=== PATIENT | male | born 1955 | race African-American/Black ===

== ENCOUNTER 2017-02-09 12:35 | Inpatient (IN) | payer MEDICARE, OTHER ==
[~2017-02-09] VITALS: Ht 188 cm; Wt 95.3 kg
[~2017-02-09 12:35] MED LIST: ASPIRIN81 MG ORAL; ATIVAN0.5 MG ORAL; AZITHROMYCIN250 MG ORAL; HYDROCHLOROTH12.5 M2 ORAL; ISENTRESS400 MG ORAL; NORVIR100 MG ORAL; OMEPRAZOLE20 M2 ORAL; PHENERGAN/CODE120 ML ORAL; PREZISTA400 MG ORAL; TRUVADA 200 MG1 EAC1 ORAL; UNOBMED; ZITHROMAX250 MG ORAL
[2017-02-09 12:57] VITALS: BP 132/89
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
[2017-02-09 13:40] LABS: BASOPHILS % (AUTO) 1.7 % (0.0-2.0); EOSINOPHILS % (AUTO) 1.9 % (0.0-3.0); LYMPHOCYTES % (AUTO) 53.9 % (20.0-45.0); MEAN CORPUSCULAR HEMOGLOBIN 33.4 PG (27.0-31.0); MEAN CORPUSCULAR HGB CONC 33.1 G/DL (32.0-36.0); MEAN CORPUSCULAR VOLUME 101 FL (80-99); MEAN PLATELET VOLUME 8.4 FL (6.5-10.1); MONOCYTES % (AUTO) 6.5 % (1.0-10.0); PLATELET COUNT 150 K/UL (150-450); RED BLOOD COUNT 4.63 M/UL (4.70-6.10); RED CELL DISTRIBUTION WIDTH 12.4 % (11.6-14.8); WHITE BLOOD COUNT 6.7 K/UL (4.8-10.8)
[2017-02-09 13:56] LABS: ALANINE AMINOTRANSFERASE 33 U/L (3-41); ALBUMIN/GLOBULIN RATIO 1.6 (1.0-2.7); ANION GAP 14 (5-15); ASPARTATE AMINO TRANSFERASE 26 U/L (5-40); CALCIUM 9.5 mg/dL (8.6-10.2); CARBON DIOXIDE 24 mEQ/L (20-30); CHLORIDE 102 mEQ/L (98-107); GLOMERULAR FILTRATION RATE > 60 mL/min (>60); HEMOLYSIS 4; POTASSIUM 3.8 mEQ/L (3.4-4.9); SODIUM 140 mEQ/L (135-145); TOTAL PROTEIN 7.6 g/dL (6.6-8.7); TROPONIN I < 0.30 ng/mL (<=0.30)
[2017-02-09 14:06] LABS: CKMB 1.9 ng/mL (< 6.7)
[2017-02-09 15:20] VITALS: BP 146/84
[2017-02-09] MEDS ORDERED: Zolpidem 5mg tab ORAL PRN (16:45)
[2017-02-09] MEDS: Ritonavir 100mg tab ORAL SCH (18:59)
[2017-02-09 20:00] VITALS: BP 118/67
[2017-02-09] MEDS: Isentress 400mg tab ORAL SCH (20:50)
[2017-02-09] MEDS: Heparin 5000 units/ml inj SUBQ SCH (20:53)
[2017-02-10] VITALS: BP 105/57
--- NOTE | 2017-02-10 02:15 | Consultation ---
DATE OF CONSULTATION: 02/09/2017 CARDIOLOGY CONSULT CONSULTING PHYSICIAN: Tavares Trevino M.D. REQUESTING PHYSICIAN: Mckay Sinha M.D. REASON FOR CONSULTATION: Chest pain. HISTORY OF PRESENT ILLNESS: This is a 61-year-old male with a history of hypertension and hyperlipidemia, who is on protease inhibitors for HIV/AIDS. He notes several days of recurring chest pressure. The episodes were not necessarily exertional and unusual. Last evening, he had sexual activity and noted a severe episode thereafter prompting him to come to the emergency room for further evaluation early this morning. The patient did take a Cialis tablet two days ago, but not since. He does not use nitroglycerin. PAST MEDICAL HISTORY: Hypertension, hyperlipidemia, and HIV/AIDS. MEDICATIONS: Reviewed and reconciled. ALLERGIES: Sulfa. SOCIAL HISTORY: No smoking, alcohol, or substance abuse. REVIEW OF SYSTEMS: No fevers or chills. No cough or chest congestion. No history of blood clotting. No history of diabetes or thyroid disorder. He is not on any antihypertensive or anti-lipid drugs presently due to improve parameters. There is no history of seizure or stroke. There is no history of cardiac arrhythmias, endocarditis, or rheumatic heart disease. There is no history of kidney disorder. PHYSICAL EXAMINATION: GENERAL: Appears well. No distress. VITAL SIGNS: Blood pressure 132/89, pulse 73, respirations 20, and afebrile. HEENT: Conjunctivae are pink. Oropharynx clear. NECK: Supple. Jugular venous pressure normal. No bruits. LUNGS: Clear. CARDIAC: Regular rhythm and rate. Normal S1 and S2 with no murmur, rub, or gallop. ABDOMEN: Soft and nontender. EXTREMITIES: Without edema. LABORATORY AND DIAGNOSTIC DATA: EKG revealed sinus rhythm with no abnormalities. Troponin negative. Chemistry panel within normal limits. Chest x-ray is not available to review. IMPRESSION: 1. Acute coronary syndrome. 2. History of hypertension. 3. History of hyperlipidemia. 4. Human immunodeficiency virus/acquired immune deficiency syndrome. PLAN: 1. Serial troponins. 2. Antiplatelet therapy with aspirin. 3. Cardiac monitoring. 4. Nasal oxygen. 5. Check lipid parameters. 6. P.r.n. antihypertensive. 7. No nitrates in view of relatively recent use of Cialis. 8. If no further signs of ischemia, we will obtain exercise stress test for assessment of coronary flow reserve. Tavares Trevino M.D. DR: DEVI JOB#: [id number] CC:
[2017-02-10 04:00] VITALS: BP 110/67
[2017-02-10 07:21] LABS: TROPONIN I < 0.30 ng/mL (<=0.30)
[2017-02-10 07:27] LABS: ALANINE AMINOTRANSFERASE 29 U/L (3-41); ALBUMIN/GLOBULIN RATIO 1.6 (1.0-2.7); ANION GAP 9 (5-15); ASPARTATE AMINO TRANSFERASE 24 U/L (5-40); CALCIUM 9.3 mg/dL (8.6-10.2); CARBON DIOXIDE 27 mEQ/L (20-30); CHLORIDE 105 mEQ/L (98-107); CHOLESTEROL 176 mg/dL (< 200); CHOLESTEROL/HDL RATIO 3.5 (3.3-4.4); GLOMERULAR FILTRATION RATE > 60 mL/min (>60); HEMOLYSIS 5; LDL CHOLESTEROL (CALC.) 108 mg/dL (60-99); POTASSIUM 4.1 mEQ/L (3.4-4.9); SODIUM 141 mEQ/L (135-145); TOTAL PROTEIN 6.6 g/dL (6.6-8.7)
[2017-02-10 08:00] VITALS: BP 118/72
[2017-02-10] MEDS: Ritonavir 100mg tab ORAL SCH ×2 (08:43→18:23)
[2017-02-10] MEDS: Isentress 400mg tab ORAL SCH (08:46)
[2017-02-10] MEDS: Heparin 5000 units/ml inj SUBQ SCH (08:50)
[2017-02-10 12:00] VITALS: BP 120/68
--- NOTE | 2017-02-10 12:12 | Diagnostic Imaging Report ---
Indication: Dyspnea Comparison: 11/17 15 A single view chest radiograph was obtained. Findings: There is mild platelike atelectasis at both lung bases. Lungs are clear. Heart size is normal. Bones are osteopenic. Impression: No acute disease
--- NOTE | 2017-02-10 14:22 | Cardiology Report ---
APPROVED REPORT EXAM: Two-dimensional and M-mode echocardiogram with Doppler and color Doppler. INDICATION Chest Pain M-Mode DIMENSIONS IVSd0.8 (0.7-1.1cm)Left Atrium (MM)3.4 (1.6-4.0cm) LVDd3.8 (3.5-5.6cm)Aortic Root3.0 (2.0-3.7cm) PWd0.8 (0.7-1.1cm)Aortic Cusp Exc.1.7 (1.5-2.0cm) LVDs2.0 (2.5-4.0cm) PWs0.7 cm Normal left ventricular chamber size, systolic function and wall motion. Left ventricular ejection fraction estimated to be 55-60%. No evidence of left ventricular hypertrophy. No evidence of pericardial fat or effusion. All other cardiac chamber sizes are within normal limits. Focal aortic valve sclerosis with adequate cusp excursion Thickened mitral valve leaflets with normal excursion. Mitral annulus and aortic root calcification. Pulmonic valve not well visualized. Normal tricuspid valve structure. IVC is normal in size with physiological collapse. A color flow and spectral Doppler study was performed and revealed: No aortic regurgitation. No mitral regurgitation. Left ventricular diastolic dysfunction grade 1. No tricuspid regurgitation.
[2017-02-10 16:00] VITALS: BP 127/74
--- NOTE | 2017-02-10 16:11 | Diagnostic Imaging Report ---
Indication: chest pain Technique: The study was conducted under the supervision of a stock supervisor. Exercise on a treadmill utilizing (Wellington protocol) followed by intravenous administration of 31.2 mCi of technetium 99m Myoview was performed. Three plane SPECT imaging of the heart was then performed. A resting study was performed as part of the one-day protocol with 10.7 mCi of technetium 99m myoview injected intravenously at that time. Three plane SPECT imaging of the heart was obtained. Comparison: None Clinical data: Resting heart rate: 74. Peak exercise heart rate: 136 (85% maximum predicted heart rate). Target was achieved. Resting BP: 118/72. Peak exercise BP: 162/80. Duration of exercise: 8 minutes and 22 seconds. Reason for stopping: stopped because exertional level achieved. EKG: Normal sinus rhythm. 1. Clinical response: Non ischemic 2. Electrocardiographic response: Non ischemic Findings: The myocardial perfusion scan demonstrates LVEF of 69%. No fixed or reversible perfusion defects are identified. Impression: Negative myocardial perfusion scan
--- NOTE | 2017-02-10 17:54 | History & Physical ---
History and Physical History & Physicial HISTORY OF PRESENT ILLNESS: 61-year-old male with a history of hypertension and hyperlipidemia, presents with several days of recurring chest pressure without radiation. The episodes were not necessarily exertional and unusual. Patient presented after sexual activity and had worsening chest pressure and presented to the ER for admission. He denies CAD history PAST MEDICAL HISTORY: Hypertension, hyperlipidemia, and HIV/AIDS. MEDICATIONS: Reviewed and reconciled. ALLERGIES: Sulfa. SOCIAL HISTORY: No smoking, alcohol, or substance abuse. independent REVIEW OF SYSTEMS: all 10 points reviewed PHYSICAL EXAMINATION: GENERAL: Appears well. No distress. NAD VITAL SIGNS: Blood pressure 132/89, pulse 73, respirations 20, and afebrile. HEENT: EOMI PERRL NECK: Supple. Jugular venous pressure normal. No bruits. LUNGS: Clear.without rhonchi or wheeze CARDIAC: Regular rhythm and rate. Normal S1 and S2 with no murmur, rub, or gallop. ABDOMEN: Soft and nontender. no distention EXTREMITIES: no CCE; nonfocal LABORATORY AND DIAGNOSTIC DATA: EKG revealed sinus rhythm with no abnormalities. Labs Test 02/09/17 13:00 02/10/17 05:25 White Blood Count 6.7 K/UL (4.8-10.8) Red Blood Count 4.63 M/UL (4.70-6.10) Hemoglobin 15.5 G/DL (14.2-18.0) Hematocrit 46.6 % (42.0-52.0) Mean Corpuscular Volume 101 FL (80-99) Mean Corpuscular Hemoglobin 33.4 PG (27.0-31.0) Mean Corpuscular Hemoglobin Concent 33.1 G/DL (32.0-36.0) Red Cell Distribution Width 12.4 % (11.6-14.8) Platelet Count 150 K/UL (150-450) Mean Platelet Volume 8.4 FL (6.5-10.1) Neutrophils (%) (Auto) 36.0 % (45.0-75.0) Lymphocytes (%) (Auto) 53.9 % (20.0-45.0) Monocytes (%) (Auto) 6.5 % (1.0-10.0) Eosinophils (%) (Auto) 1.9 % (0.0-3.0) Basophils (%) (Auto) 1.7 % (0.0-2.0) Sodium Level 140 mEQ/L (135-145) 141 mEQ/L (135-145) Potassium Level 3.8 mEQ/L (3.4-4.9) 4.1 mEQ/L (3.4-4.9) Chloride Level 102 mEQ/L (98-107) 105 mEQ/L (98-107) Carbon Dioxide Level 24 mEQ/L (20-30) 27 mEQ/L (20-30) Anion Gap 14 (5-15) 9 (5-15) Blood Urea Nitrogen 16 mg/dL (7-23) 16 mg/dL (7-23) Creatinine 1.0 mg/dL (0.7-1.2) 1.0 mg/dL (0.7-1.2) Estimat Glomerular Filtration Rate > 60 mL/min (>60) > 60 mL/min (>60) Glucose Level 105 mg/dL (74-106) 97 mg/dL (74-106) Calcium Level 9.5 mg/dL (8.6-10.2) 9.3 mg/dL (8.6-10.2) Total Bilirubin 0.5 mg/dL (0.0-1.2) 0.4 mg/dL (0.0-1.2) Aspartate Amino Transf (AST/SGOT) 26 U/L (5-40) 24 U/L (5-40) Alanine Aminotransferase (ALT/SGPT) 33 U/L (3-41) 29 U/L (3-41) Alkaline Phosphatase 63 U/L (40-129) 56 U/L (40-129) Total Creatine Kinase 156 U/L (38-174) Creatine Kinase MB 1.9 ng/mL (< 6.7) Creatine Kinase MB Relative Index 1.2 Troponin I < 0.30 ng/mL (<=0.30) < 0.30 ng/mL (<=0.30) Total Protein 7.6 g/dL (6.6-8.7) 6.6 g/dL (6.6-8.7) Albumin 4.7 g/dL (3.5-5.2) 4.1 g/dL (3.5-5.2) Globulin 2.9 g/dL 2.5 g/dL Albumin/Globulin Ratio 1.6 (1.0-2.7) 1.6 (1.0-2.7) Triglycerides Level 92 mg/dL (< 150) Cholesterol Level 176 mg/dL (< 200) LDL Cholesterol 108 mg/dL (60-99) HDL Cholesterol 50 mg/dL (> 60) Cholesterol/HDL Ratio 3.5 (3.3-4.4) Thyroid Stimulating Hormone (TSH) 0.730 uIU/mL (0.300-4.500) IMPRESSION: 1. Possible Acute coronary syndrome. 2. History of hypertension. 3. History of hyperlipidemia. 4. HIV PLAN: 1. Serial troponins. 2. aspirin. 3. Cardiac monitoring. 4. Nasal oxygen. 5. Check lipid parameters. 6. Cardiology appreciated 7. Stress test and dc if stable JENNIFFER GIBSON Feb 10, 2017 17:54
--- NOTE | 2017-02-11 03:30 | Progress Note ---
DATE: 02/10/2017 CARDIOLOGY PROGRESS NOTE: SUBJECTIVE: The patient is without chest pain. No shortness of breath. Troponin level negative. Monitored rhythm sinus. OBJECTIVE: VITAL SIGNS: Blood pressure is 110/67 and heart rate 60 with respiratory rate 16. No fevers. NECK: Supple. LUNGS: Clear. CARDIAC: Regular. Normal S1 and S2. ABDOMEN: Soft. EXTREMITIES: No edema. DIAGNOSTIC DATA: 1. Echocardiogram revealed normal ejection fraction with mild concentric hypertrophy. 2. Exercise stress test, preliminary negative for exercise-induced ischemia. 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 3. History of hypertension, controlled off medications. 4. History of hyperlipidemia. 5. Human-immunodeficiency virus and acquired immune-deficiency syndrome, on antiviral regimen. PLAN: 1. Outpatient followup. 2. LDL goal less than 100, continued anti-platelet therapy. 3. Monitor blood pressure. 4. Initiate antihypertensives, if blood pressure elevation reoccurs. Tavares Trevino M.D. DR: Sofia JOB#: [id number] CC:
--- NOTE | 2017-02-11 10:39 | Discharge Summary ---
Discharge Summary Hospital Course Date of Admission Feb 09, 2017 at 15:55 Date of Discharge Feb 10, 2017 at 19:01 Admitting Diagnosis CHEST PAIN HPI Prabhjot Phoenix is a 61 year old male who was admitted on Feb 09, 2017 at 15:55 for Chest Pain Hospital Course dc summary #[id number] Discharge Medications Continued Medications: Aspirin* (Aspirin*) 81 Mg Tab.chew 81 MG ORAL DAILY, TAB Azithromycin* (Zithromax*) 250 Mg Tablet 250 MG ORAL DAILY, #6 TAB Take two tablets by mouth today, then take one tablet by mouth daily for four days Darunavir Ethanolate (Prezista*) 400 Mg Tablet Unknown Dose ORAL DAILY, TAB Emtricitabine/Tenofovir 200-300MG* (Truvada 200-300MG*) 1 Each Tablet Unknown Dose ORAL DAILY, TAB Hydrochlorothiazide* (Hydrochlorothiazide*) 12.5 Mg Capsule 12.5 MG ORAL DAILY, CAP Lorazepam* (Ativan*) 0.5 Mg Tablet 0.5 MG ORAL THREE TIMES A DAY, #14 TAB Omeprazole (Omeprazole) 20 Mg Capsule.dr 20 MG ORAL DAILY, #20 CAP Raltegravir (Isentress) 400 Mg Tab 400 MG ORAL EVERY 12 HOURS, TAB Ritonavir* (Norvir*) 100 Mg Capsule 100 MG ORAL TWICE A DAY, #60 CAP Discharge Condition Upon Discharge: stable Discharge Disposition Patient was discharged to Home () Discharge Diagnoses: Discharge Instructions Discharge Instructions Special Instructions I have been assigned to complete a D/C Summary on this account. I was not involved in the patient management Elizabet Foreman NP ([facility]) Feb 11, 2017 10:39
--- NOTE | 2017-02-12 04:21 | Discharge Summary 2 SIG ---
DATE OF ADMISSION: 02/09/2017 DATE OF DISCHARGE: 02/10/2017 REASON FOR ADMISSION: 61-year-old male with history of hypertension, hyperlipidemia, and human immunodeficiency status (last CD4 count 700), presented with several days of recurrent chest pain without radiation. No exertional shortness of breath. Reported dizziness. Chest pressure started after having sexual activity. He denied any prior coronary artery disease history. First troponin was negative. EKG revealed normal sinus rhythm. No acute ischemic changes. Chest x-ray revealed no acute cardiopulmonary pathology. Vital signs were stable. The patient was admitted for further management. ADMITTING DIAGNOSES: 1. Chest pain 2. Possible acute coronary syndrome. 3. Human immunodeficiency virus status. 4. Hypertension. 5. Hyperlipidemia. HOSPITAL STAY: The patient was admitted to telemetry floor. Cardiology consult was requested. Serial troponin were negative. EKG revealed no acute ischemic changes. Cardiology closely followed. The patient was ruled out for acute myocardial infarction. Echocardiogram revealed preserved ejection fraction of 55% to 60%. Lipid panel revealed elevated LDL of 108. TSH was within normal limits. Goal for LDL below 100. Antiplatelet therapy continued. Stress test was nonischemic. Per repair manager, the patient had anginal syndrome and microvascular coronary disease with low likelihood for flow-limiting coronary artery disease. The patient needs to follow up with repair manager as outpatient. The patient was stable for discharge. Due to the rapid and unexpected improvement in the patient's condition, the patient was discharged in one day. 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 3. Hypertension. 4. Hyperlipidemia. 5. Human immunodeficiency virus status. DISCHARGE MEDICATIONS: See medication reconciliation list. DISCHARGE INSTRUCTIONS: The patient was discharged home. Follow up with primary medical doctor and repair manager as outpatient. Mckay Sinha M.D. I have been assigned to dictate discharge summary on this account and I was not involved in the patient's management. Eliz[facility]et [facility]) N.PNam DR: JESSE JOB#: [id number] CC: SOHA
--- NOTE | 2017-02-13 21:23 | Cardiology Report ---
APPROVED REPORT EKG Measurement Heart [id number] Normal sinus rhythm Normal ECG
== END 2017-02-10 19:01 | disposition home or self-care (01) | DRG 302 ==
LOC: EMR 13:27 → EDBEDREQ 14:53 → UNDOADMIN 15:55 → 2E 15:55 → UNDODISIN 02-10 19:01
DX: I25.119 Atherosclerotic heart disease of native coronary artery with unspecified angina pectoris (principal); B20 Human immunodeficiency virus [HIV] disease; I10 Essential (primary) hypertension; E78.5 Hyperlipidemia, unspecified
CPT/HCPCS: 36415; 71010; 78452; 80053; 80061; 82550; 82553; 84443; 84484; 85025; 93005; 93017; 93306; 99284

== ENCOUNTER 2018-01-19 21:51 | Emergency (ER) | payer MEDICARE, OTHER ==
[~2018-01-19] VITALS: Ht 188 cm; Wt 98.9 kg
[2018-01-19] MEDS ORDERED: DESCOVY PO (22:03)
[2018-01-19 22:07] VITALS: BP 128/83
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
[2018-01-19 22:55] VITALS: BP 128/83
--- NOTE | 2018-01-20 09:12 | Diagnostic Imaging Report ---
Indication: Altered mental status Technique: Continuous helical CT scanning of the head was performed utilizing automated exposure control without intravenous contrast material. Axial and coronal reconstructions were obtained. Comparison: None CT dose: Total DLP 1376.09 mGycm; CTDI vol 70.38 mGy Findings: There is no acute intracranial hemorrhage, mass effect or cortical edema. The ventricles, cisterns and sulci are within normal limits for age. There is very mild periventricular hypoattenuation, nonspecific finding most commonly related to sequela of chronic microvascular ischemia. There are atherosclerotic vascular calcifications. Visualized mastoid air cells and paranasal sinuses are unremarkable. No focal lesions of the bony calvarium or soft tissues of the scalp are seen. IMPRESSION: No evidence of acute intracranial hemorrhage, mass effect or cortical edema. MRI may be obtained for more sensitive evaluation as clinically indicated. The CT scanner at [facility] is accredited by the [employer] and the scans are performed using protocols designed to limit radiation exposure to as low as reasonably achievable to attain images of sufficient resolution adequate for diagnostic evaluation.
== END 2018-01-19 22:56 | disposition home or self-care (01) ==
LOC: EMR 22:30
DX: R51 Headache (principal); Z88.2 Allergy status to sulfonamides
CPT/HCPCS: 70450; 99285

== ENCOUNTER 2018-11-29 18:18 | Emergency (ER) | payer MEDICARE, OTHER ==
[~2018-11-29] VITALS: Ht 188 cm; Wt 88.5 kg
[~2018-11-29 18:18] MED LIST changes: +DESCOVY PO
--- NOTE | 2018-11-29 18:31 | NUR ---
ED Nurse Note: pt walked into ED c/o weakness and dizziness for 1 day and reports he started having twitching in his eyes. pt denies cp/sob/n/v at this time. pt AA&ox4, gcs=15, skin warm and dry, reps even and unlabored on RA, -n/v/d, ambulates w/ steady gait, ERMD at the bedside, all safety precautions in place, will cont monitor. vss. nsr on campus monitor.
[2018-11-29 18:33] VITALS: BP 134/74
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
[2018-11-29 18:58] LABS: BASOPHILS % (AUTO) 1.8 % (0.0-2.0); HEMATOCRIT 38.2 % (42.0-52.0); HEMOGLOBIN 13.5 G/DL (14.2-18.0); LYMPHOCYTES % (AUTO) 52.4 % (20.0-45.0); MEAN CORPUSCULAR VOLUME 95 FL (80-99); MONOCYTES % (AUTO) 12.8 % (1.0-10.0); PLATELET COUNT 123 K/UL (150-450); RED BLOOD COUNT 4.01 M/UL (4.70-6.10); RED CELL DISTRIBUTION WIDTH 12.9 % (11.6-14.8); WHITE BLOOD COUNT 5.8 K/UL (4.8-10.8)
[2018-11-29 19:15] LABS: ANION GAP 9 mmol/L (5-15); BLOOD UREA NITROGEN 14 mg/dL (7-18); CALCIUM 8.8 MG/DL (8.5-10.1); CARBON DIOXIDE 26 MMOL/L (21-32); CHLORIDE 104 MMOL/L (98-107); CREATININE 1.3 MG/DL (0.55-1.30); POTASSIUM 3.5 MMOL/L (3.5-5.1); SODIUM 138 MMOL/L (136-145)
--- NOTE | 2018-11-29 19:20 | NUR ---
ED Nurse Note: pt resting at this time, vss, resp even and unlabored on RA, NSR on cook chief, pt advised to notify staff if needed assist, all safety precautions in place.
[2018-11-29 19:27] LABS: ALANINE AMINOTRANSFERASE 34 U/L (12-78); ALBUMIN 3.7 G/DL (3.4-5.0); ALBUMIN/GLOBULIN RATIO 1.1 (1.0-2.7); ALKALINE PHOSPHATASE 62 U/L (46-116); ASPARTATE AMINO TRANSFERASE 35 U/L (15-37); BILIRUBIN,TOTAL 0.5 MG/DL (0.2-1.0)
--- NOTE | 2018-11-29 20:00 | NUR ---
ED Nurse Note: verified w/ ermd regarding medication kdur.
[2018-11-29 20:10] VITALS: BP 122/60
--- NOTE | 2018-11-29 20:10 | NUR ---
ED Nurse Note: Pt cleared to be d/c per ERMD, pt discharge and aftercare instruction provided, pt education done via discussion and handout, pt advised to follow up with pcp or return to ed if changes in condition, pt vss, ambulatory w/steady gait, iv d/c and id band removed, left w/ all belongings.
== END 2018-11-29 20:10 | disposition home or self-care (01) ==
LOC: EMR 18:29
DX: R20.2 Paresthesia of skin (principal); Z88.2 Allergy status to sulfonamides; I10 Essential (primary) hypertension; B20 Human immunodeficiency virus [HIV] disease
CPT/HCPCS: 36415; 80053; 84443; 84484; 85025; 99283; J8499

== ENCOUNTER 2019-05-19 14:26 | Inpatient (IN) | payer MEDICARE, OTHER ==
[~2019-05-19] VITALS: Ht 185.4 cm; Wt 85.7 kg
[2019-05-19 15:05] VITALS: BP 166/76
--- NOTE | 2019-05-19 15:06 | NUR ---
ED Nurse Note: pt walked in to ED for C/O upper abd pain x 3 days. pt reports feelin of having a knot being tied inside his stomach. pt also has been having nausea and vomitting. VSS
[2019-05-19] MEDS ORDERED: Omnipaque-300 100ml vial INJ PRN (15:15)
[2019-05-19] MEDS ORDERED: Morphine Sulfate 4mg/ml Inj (IV USE ONLY) IVP ONE (15:15)
--- NOTE | 2019-05-19 15:16 | NUR ---
ED Nurse Note: blood sample sent down to lab. unable to provide urine at this time.
[2019-05-19 15:43] LABS: INR 0.9 (0.9-1.1)
[2019-05-19 15:44] LABS: BASOPHILS % (AUTO) 1.5 % (0.0-2.0); HEMATOCRIT 44.7 % (42.0-52.0); HEMOGLOBIN 15.8 G/DL (14.2-18.0); LYMPHOCYTES % (AUTO) 49.7 % (20.0-45.0); MEAN CORPUSCULAR VOLUME 101 FL (80-99); MONOCYTES % (AUTO) 8.9 % (1.0-10.0); NEUTROPHILS % (AUTO) 38.9 % (45.0-75.0); PLATELET COUNT 139 K/UL (150-450); RED BLOOD COUNT 4.43 M/UL (4.70-6.10); RED CELL DISTRIBUTION WIDTH 12.7 % (11.6-14.8); WHITE BLOOD COUNT 7.3 K/UL (4.8-10.8)
[2019-05-19 15:46] LABS: ANION GAP 9 mmol/L (5-15); BLOOD UREA NITROGEN 12 mg/dL (7-18); CALCIUM 9.3 MG/DL (8.5-10.1); CARBON DIOXIDE 28 MMOL/L (21-32); CHLORIDE 100 MMOL/L (98-107); CREATININE 1.1 MG/DL (0.55-1.30); POTASSIUM 3.7 MMOL/L (3.5-5.1); SODIUM 137 MMOL/L (136-145)
[2019-05-19 15:50] LABS: ALANINE AMINOTRANSFERASE 43 U/L (12-78); ALBUMIN 4.2 G/DL (3.4-5.0); ALKALINE PHOSPHATASE 71 U/L (46-116); ASPARTATE AMINO TRANSFERASE 32 U/L (15-37); BILIRUBIN,TOTAL 0.5 MG/DL (0.2-1.0)
--- NOTE | 2019-05-19 16:04 | NUR ---
ED Nurse Note: PT went to Ct
--- NOTE | 2019-05-19 16:20 | NUR ---
ED Nurse Note: vack form CT
[2019-05-19 16:40] LABS: APPEARANCE,URINE CLEAR; BILIRUBIN, URINE NEGATIVE (NEGATIVE); GLUCOSE, URINE (UA) NEGATIVE (NEGATIVE); KETONES,URINE NEGATIVE (NEGATIVE); LEUKOCYTE ESTERASE ,URINE NEGATIVE (NEGATIVE); NITRITE,URINE NEGATIVE (NEGATIVE); PH,URINE 6.5 (4.5-8.0); PROTEIN,URINE NEGATIVE (NEGATIVE); UROBILINOGEN,URINE 4 MG/DL (0.0-1.0)
--- NOTE | 2019-05-19 16:50 | Diagnostic Imaging Report ---
Clinical Indication: Abdominal pain x3 days, nausea and vomiting Technique: No oral contrast utilized, per emergency room physician request IV administration nonionic contrast. Venous phase spiral acquisition obtained through the abdomen and pelvis. Multiplanar reconstructions were generated. Total dose length product 967 mGycm. CTDIvol(s) 16 mGy. Dose reduction achieved using automated exposure control Comparison: none Findings: Lack of enteric contrast limits assessment of the GI tract. The terminal ileum is slightly prominent, demonstrates mild wall thickening. The distal ileum proximal to the terminal ileum is unremarkable in appearance. However, beginning at the level of the mid jejunum, the small bowel is dilated and fluid-filled. The wall is somewhat prominent and enhancing. The transition point appears to be in the left lower quadrant, axial series 2 images 57 through 75, distal to which small bowel is nondilated, still fluid-filled with some mural enhancement. The distal dilated small bowel contains some small bowel feces The appendix is normal. There is no evidence of colonic diverticulosis or diverticulitis. No free or loculated intraperitoneal gas or fluid is evident. The distal esophagus is unremarkable. The stomach is mildly distended with fluid. The duodenum is unremarkable. The liver, gallbladder, bile ducts, pancreas, spleen, adrenals, kidneys are unremarkable. No pelvic mass or adenopathy. No retroperitoneal or mesenteric mass or adenopathy. Some calcifications are seen in the left anterior pelvis, may represent old granulomatous lymph nodes The included lung bases demonstrate some posterior dependent atelectatic changes. The bones are unremarkable except for mild degenerative spondylosis changes. There are coronary artery calcifications Impression: Dilated mid and distal jejunum, with normal caliber ileum distally. Findings are suspicious for small bowel obstruction, point of obstruction at the level of the mid small bowel. However, given findings suggestive of inflammation of the terminal ileum, enteritis/ileitis is also a potential etiology of this finding Nonspecific calcifications within the left pelvis Other incidental findings as noted, including posterior dependent atelectatic changes. Mild degenerative spondylosis changes The CT scanner at [facility] is accredited by the [employer] and the scans are performed using protocols designed to limit radiation exposure to as low as reasonably achievable to attain images of sufficient resolution adequate for diagnostic evaluation.
[2019-05-19 17:10] LABS: COLOR,URINE YELLOW
[2019-05-19] MEDS ORDERED: Hydromorphone 0.5mg/0.5ml inj IVP ONE (17:45)
[2019-05-19] MEDS ORDERED: FAMOTIDINE10 MG ORAL (17:46)
[2019-05-19] MEDS ORDERED: LISINOPRIL5 MG ORAL (17:46)
--- NOTE | 2019-05-19 18:06 | NUR ---
ED Nurse Note: NGT inserted, awaiting for x ray to confirm placement.
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
--- NOTE | 2019-05-19 18:09 | NUR ---
ED Nurse Note: chest x ray at bedside.
[2019-05-19 18:10] VITALS: BP 152/80
--- NOTE | 2019-05-19 18:31 | NUR ---
ED Nurse Note: pt in bed resting with eyes closed. No acute distress is noted.
--- NOTE | 2019-05-19 18:37 | Diagnostic Imaging Report ---
History: PREOP Exam: XR ABDOMEN Comparison: IMPRESSION: Single image. Nasogastric tube tip within the proximal stomach approximately 4.5 cm beyond the expected location of the GE junction
--- NOTE | 2019-05-19 18:45 | NUR ---
ED Nurse Note: pt was brought up to MS [id number] -1 accompanied by marketing technology coordinator in stable condition. Report given to accepting RN. Belonging list signed. IV intact to right AC 18G. NGT inplace to right nare.
--- NOTE | 2019-05-19 19:00 | NUR ---
NURSE NOTES: Received report from Khadra HICKS, pt arrived to the floor at 18:50 with no signs of distress or other issues at this time. VS: temp: 98.3, 151/77, HR: 55, R: 20 O2 sat: 96%. pt presented with NGT on the right nostril FR#16 with low intermittent suction. Iv on the right Ac gauge#18 heplock. per report pt received bolus 1L x1. no skin issues. call light within reach, bed in lowest position, side rales up x2. I will f/u as needed. - Belongings list per ER was not correct. RN added pt's upper dentures and credit cards x4, [employer] $5 x2 =$10. pt stated that wanted to keep her wallet at bedside.
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
[2019-05-19] MEDS ORDERED: Acetaminophen 650 MG SUPP RECTAL PRN (19:15)
[2019-05-19] MEDS ORDERED: Morphine Sulfate 2mg/ml Inj(IV/IM USE ONLY) IVP PRN (19:15)
--- NOTE | 2019-05-19 19:30 | NUR ---
HAND-OFF: Report given to Desiree HICKS. pt in stable condition.
[2019-05-19] MEDS: D5NS 1,000 ML IV SCH (20:06)
[2019-05-19] MEDS: Heparin 5000 units/ml inj SUBQ SCH (20:08)
[2019-05-19 20:19] VITALS: BP 141/74
[2019-05-19] MEDS: LORazepam Inj 2mg/ml 1ml IV PRN (22:57)
--- NOTE | 2019-05-19 23:02 | Diagnostic Imaging Report ---
EXAM: XR Abdomen, 2 Views CLINICAL HISTORY: NGT TECHNIQUE: Frontal view of the abdomen/pelvis with upright view of the abdomen. COMPARISON: 05/19/18, 1807 hour FINDINGS: Gastrointestinal tract: Long segment of small bowel are moderately dilated to 5 cm in maximal diameter, suggest ileus versus obstruction. Bones/joints: Mild degenerative changes. Tubes, lines and devices: Tip and sidehole of enteric tube are in the body of stomach. IMPRESSION: Tip and sidehole of enteric tube are in the body of stomach.
--- NOTE | 2019-05-19 23:24 | NUR ---
NURSE NOTE: Pt NG tube fell out after using the restroom at approx 2250. Dr. Manriquez was contacted. NG tube reinserted with 16 F in the right nares. Addendum: 05/19/19 at 2327 by Desiree Negrete RN NG tube connected to low intermittent wall suction.
--- NOTE | 2019-05-19 23:34 | NUR ---
NURSE NOTE: Pt is A/Ox4 with stable VS. Orders reviewed and physical assessment completed. Pt complains of nausea despite having an NG tube as well as abdominal pain 12/30. PRN meds given accordingly. NG tube is a 16 F in the R nares connected to low intermittent suction. NG tube output is bilious. Call hernandez is within reach, will continue to monitor.
[2019-05-20 04:00] VITALS: BP 130/74
[2019-05-20] MEDS: D5NS 1,000 ML IV SCH ×2 (05:14→16:01)
[2019-05-20 06:59] LABS: INR 0.9 (0.9-1.1)
[2019-05-20 07:02] LABS: BASOPHILS % (AUTO) 0.9 % (0.0-2.0); EOSINOPHILS % (AUTO) 1.2 % (0.0-3.0); HEMATOCRIT 40.9 % (42.0-52.0); HEMOGLOBIN 14.3 G/DL (14.2-18.0); LYMPHOCYTES % (AUTO) 35.4 % (20.0-45.0); MEAN CORPUSCULAR VOLUME 101 FL (80-99); MONOCYTES % (AUTO) 10.9 % (1.0-10.0); NEUTROPHILS % (AUTO) 51.6 % (45.0-75.0); PLATELET COUNT 128 K/UL (150-450); RED BLOOD COUNT 4.04 M/UL (4.70-6.10); RED CELL DISTRIBUTION WIDTH 12.6 % (11.6-14.8)
[2019-05-20 07:07] LABS: ALANINE AMINOTRANSFERASE 41 U/L (12-78); ALBUMIN 3.2 G/DL (3.4-5.0); ALBUMIN/GLOBULIN RATIO 0.9 (1.0-2.7); ALKALINE PHOSPHATASE 58 U/L (46-116); ANION GAP 7 mmol/L (5-15); ASPARTATE AMINO TRANSFERASE 28 U/L (15-37); BILIRUBIN,TOTAL 0.4 MG/DL (0.2-1.0); BLOOD UREA NITROGEN 7 mg/dL (7-18); CALCIUM 7.8 MG/DL (8.5-10.1); CARBON DIOXIDE 27 MMOL/L (21-32); CHLORIDE 106 MMOL/L (98-107); CHOLESTEROL 180 MG/DL (< 200); CREATININE 0.8 MG/DL (0.55-1.30); HDL CHOLESTEROL 48 MG/DL (40-60); POTASSIUM 3.8 MMOL/L (3.5-5.1); SODIUM 140 MMOL/L (136-145); TRIGLYCERIDES 111 MG/DL (30-150)
--- NOTE | 2019-05-20 07:26 | NUR ---
HAND-OFF: Report given to
[2019-05-20 08:00] VITALS: BP 125/71
--- NOTE | 2019-05-20 08:00 | NUR ---
NURSE NOTES: Received report from Desiree HICKS. pt a/a/o x4 laying in bed with no signs of distress or other issues at this time. pt has a NGT on the right nostril with low intermittent suction. per night nurse report, total out put:150ml. call light within reach, bed in lowest position, side rales up x2. I will f/u as needed.
--- NOTE | 2019-05-20 08:48 | Diagnostic Imaging Report ---
EXAM: XR Abdomen, 1 Views CLINICAL HISTORY: F/U TECHNIQUE: Frontal view of the abdomen/pelvis . COMPARISON: Abdomen film 05/19/19 FINDINGS: Lower thorax: Elevated right hemidiaphragm. Gastrointestinal tract: Previously seen dilated small bowel have resolved. Moderate stool and gas in the colon. No bowel obstruction. Bones/joints: Unremarkable. Tubes, lines and devices: NG tube tip in the stomach, good position. IMPRESSION: 1. NG tube tip in the stomach, good position. 2. Previously seen dilated small bowel loops have resolved. Moderate stool and gas in the colon. No bowel obstruction.
[2019-05-20] MEDS: Pantoprazole Inj IV SCH (09:25)
[2019-05-20] MEDS: Heparin 5000 units/ml inj SUBQ SCH ×2 (09:26→20:34)
[2019-05-20 12:00] VITALS: BP 173/103
--- NOTE | 2019-05-20 13:12 | Surgery Progress Note ---
Surgery Progress Note Subjective Symptoms: improved, pain absent, tolerating diet, voiding well, passing flatus , pain decreased Additional Comments much improved passing flatus KUB improved ng tube okay Objective Last 24 Hour Vital Signs Date Time Temp Pulse Resp B/P (MAP) Pulse Ox O2 Delivery O2 Flow Rate FiO2 05/20/19 08:00 98.4 60 16 125/71 (89) 94 05/20/19 04:00 97.3 71 18 130/74 (92) 97 05/19/19 21:32 Room Air 05/19/19 20:19 97.7 54 18 141/74 (96) 95 05/19/19 18:44 98.0 84 20 156/80 97 Room Air 05/19/19 18:10 98.0 90 20 152/80 96 Room Air 05/19/19 15:05 88 22 Room Air 05/19/19 15:05 98.1 88 22 166/76 96 Room Air 05/19/19 14:50 98.1 88 22 166/76 (106) 96 Room Air I&O Intake and Output 05/19/19 05/20/19 19:00 07:00 Intake Total 1000 ml Output Total 0 ml 750 ml Balance 1000 ml -750 ml Intake IV Total 1000 ml Output Urine Total 0 ml 600 ml Gastric Drainage Total 150 ml # Voids 2 Drains: other Cardiovascular: RSR Respiratory: clear Abdomen: soft, flat, non-tender, present bowel sounds, non-distended Extremities: no cyanosis Laboratory Tests Test 05/19/19 15:15 05/19/19 16:23 05/20/19 05:35 White Blood Count 7.3 K/UL (4.8-10.8) 6.0 K/UL (4.8-10.8) Red Blood Count 4.43 M/UL (4.70-6.10) L 4.04 M/UL (4.70-6.10) L Hemoglobin 15.8 G/DL (14.2-18.0) 14.3 G/DL (14.2-18.0) Hematocrit 44.7 % (42.0-52.0) 40.9 % (42.0-52.0) L Mean Corpuscular Volume 101 FL (80-99) H 101 FL (80-99) H Mean Corpuscular Hemoglobin 35.7 PG (27.0-31.0) H 35.4 PG (27.0-31.0) H Mean Corpuscular Hemoglobin Concent 35.4 G/DL (32.0-36.0) 35.0 G/DL (32.0-36.0) Red Cell Distribution Width 12.7 % (11.6-14.8) 12.6 % (11.6-14.8) Platelet Count 139 K/UL (150-450) L 128 K/UL (150-450) L Mean Platelet Volume 6.4 FL (6.5-10.1) L 7.8 FL (6.5-10.1) Neutrophils (%) (Auto) 38.9 % (45.0-75.0) L 51.6 % (45.0-75.0) Lymphocytes (%) (Auto) 49.7 % (20.0-45.0) H 35.4 % (20.0-45.0) Monocytes (%) (Auto) 8.9 % (1.0-10.0) 10.9 % (1.0-10.0) H Eosinophils (%) (Auto) 1.0 % (0.0-3.0) 1.2 % (0.0-3.0) Basophils (%) (Auto) 1.5 % (0.0-2.0) 0.9 % (0.0-2.0) Prothrombin Time 9.7 SEC (9.30-11.50) 10.0 SEC (9.30-11.50) Prothromb Time International Ratio 0.9 (0.9-1.1) 0.9 (0.9-1.1) Activated Partial Thromboplast Time 25 SEC (23-33) 25 SEC (23-33) Sodium Level 137 MMOL/L (136-145) 140 MMOL/L (136-145) Potassium Level 3.7 MMOL/L (3.5-5.1) 3.8 MMOL/L (3.5-5.1) Chloride Level 100 MMOL/L (98-107) 106 MMOL/L (98-107) Carbon Dioxide Level 28 MMOL/L (21-32) 27 MMOL/L (21-32) Anion Gap 9 mmol/L (5-15) 7 mmol/L (5-15) Blood Urea Nitrogen 12 mg/dL (7-18) 7 mg/dL (7-18) Creatinine 1.1 MG/DL (0.55-1.30) 0.8 MG/DL (0.55-1.30) Estimat Glomerular Filtration Rate > 60 mL/min (>60) > 60 mL/min (>60) Glucose Level 118 MG/DL (74-106) H 120 MG/DL (74-106) H Calcium Level 9.3 MG/DL (8.5-10.1) 7.8 MG/DL (8.5-10.1) L Total Bilirubin 0.5 MG/DL (0.2-1.0) 0.4 MG/DL (0.2-1.0) Aspartate Amino Transf (AST/SGOT) 32 U/L (15-37) 28 U/L (15-37) Alanine Aminotransferase (ALT/SGPT) 43 U/L (12-78) 41 U/L (12-78) Alkaline Phosphatase 71 U/L (46-116) 58 U/L (46-116) Troponin I 0.002 ng/mL (0.000-0.056) Total Protein 8.5 G/DL (6.4-8.2) H 6.7 G/DL (6.4-8.2) Albumin 4.2 G/DL (3.4-5.0) 3.2 G/DL (3.4-5.0) L Globulin 4.3 g/dL 3.5 g/dL Albumin/Globulin Ratio 1.0 (1.0-2.7) 0.9 (1.0-2.7) L Lipase 82 U/L (73-393) Urine Color Yellow Urine Appearance Clear Urine pH 6.5 (4.5-8.0) Urine Specific [place] 1.015 (1.005-1.035) Urine Protein Negative (NEGATIVE) Urine Glucose (UA) Negative (NEGATIVE) Urine Ketones Negative (NEGATIVE) Urine Blood Negative (NEGATIVE) Urine Nitrite Negative (NEGATIVE) Urine Bilirubin Negative (NEGATIVE) Urine Urobilinogen 4 MG/DL (0.0-1.0) H Urine Leukocyte Esterase Negative (NEGATIVE) Hemoglobin A1c 5.5 % (4.3-6.0) Pro-B-Type Natriuretic Peptide 73 pg/mL (0-125) Triglycerides Level 111 MG/DL (30-150) Cholesterol Level 180 MG/DL (< 200) LDL Cholesterol 106 mg/dL (<100) H HDL Cholesterol 48 MG/DL (40-60) Cholesterol/HDL Ratio 3.8 (3.3-4.4) Plan Problems: (1) SBO (small bowel obstruction) Assessment & Plan: 63-year-old male with prior history of ex lap followed by SBO exploration came in with abdominal pain CT with possible SBO Exam abdomen soft nontender but distended No acute surgical intervention N.p.o. IV fluids IV antibiotics NG tube decompression will not muñoz him monitor for now plan to d/c ng tomorrow if improving Severe abdominal exams We will follow with recommendations If not significantly improved in the next 24 to 48 hours may require exploration discussed with patient in detail at bedside in emergency department Findings: Lack of enteric contrast limits assessment of the GI tract. The terminal ileum is slightly prominent, demonstrates mild wall thickening. The distal ileum proximal to the terminal ileum is unremarkable in appearance. However, beginning at the level of the mid jejunum, the small bowel is dilated and fluid-filled. The wall is somewhat prominent and enhancing. The transition point appears to be in the left lower quadrant, axial series 2 images 57 through 75, distal to which small bowel is nondilated, still fluid-filled with some mural enhancement. The distal dilated small bowel contains some small bowel feces The appendix is normal. There is no evidence of colonic diverticulosis or diverticulitis. No free or loculated intraperitoneal gas or fluid is evident. The distal esophagus is unremarkable. The stomach is mildly distended with fluid. The duodenum is unremarkable. The liver, gallbladder, bile ducts, pancreas, spleen, adrenals, kidneys are unremarkable. No pelvic mass or adenopathy. No retroperitoneal or mesenteric mass or adenopathy. Some calcifications are seen in the left anterior pelvis, may represent old granulomatous lymph nodes The included lung bases demonstrate some posterior dependent atelectatic changes. The bones are unremarkable except for mild degenerative spondylosis changes. There are coronary artery calcifications Impression: Dilated mid and distal jejunum, with normal caliber ileum distally. Findings are suspicious for small bowel obstruction, point of obstruction at the level of the mid small bowel. However, given findings suggestive of inflammation of the terminal ileum, enteritis/ileitis is also a potential etiology of this finding Nonspecific calcifications within the left pelvis Other incidental findings as noted, including posterior dependent atelectatic changes. Mild degenerative spondylosis changes Ezekiel Manriquez May 20, 2019 13:12
[2019-05-20] MEDS ORDERED: D5NS 1000ml IV ONE (15:21)
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
[2019-05-20 16:00] VITALS: BP 133/71
[2019-05-20 20:00] VITALS: BP 140/83
--- NOTE | 2019-05-20 20:14 | NUR ---
NURSE NOTES: Pt is in bed,asleep. No acute distress noted. NG-tube on right nares, draning by gravity. Pt complains of no pain at this time. No acute distress noted. Bed locked low in position,side rails up and call light within reach. Pt will be monitored.
--- NOTE | 2019-05-20 20:19 | NUR ---
HAND-OFF: Report given to Molina HICKS pt instable condition. - received pt's HIV medication ticket number:[id number] 1. Prezista po BID 2.Isentress po BID 3. Norvir po BID 4. Descovy po HS - pt stated that doesn't recall dosage of each medication. RN given medication to [place] pharmacist who stated that since medications are not in the original bottles nor have the dosage he will not be able to dispense medications until he contact the pt's pharmacy to verify medication as well to get approval from the pharmacist director to see if we are able to give his home medications. incoming nurse is aware as well as Lyndsay TAYLOR. I will f/u as needed. - pt's pharmacy: [phone] ([facility])
[2019-05-21] VITALS (7 sets, daily range): BP systolic 136–171; BP diastolic 70–88
[2019-05-21] MEDS: D5NS 1,000 ML IV SCH ×3 (03:10→22:01)
--- NOTE | 2019-05-21 03:52 | NUR ---
NURSE NOTES: Pt is in bed, asleep. No acute distress noted. Vitas stable. NG-tube is draining by gravity.
--- NOTE | 2019-05-21 04:13 | NUR ---
NURSE NOTES: NG-tube is draining via gravity. Small amount of light green output noted in the canister.
[2019-05-21 06:28] LABS: BASOPHILS % (AUTO) 1.5 % (0.0-2.0); EOSINOPHILS % (AUTO) 1.6 % (0.0-3.0); HEMATOCRIT 41.6 % (42.0-52.0); HEMOGLOBIN 14.6 G/DL (14.2-18.0); LYMPHOCYTES % (AUTO) 46.1 % (20.0-45.0); MEAN CORPUSCULAR VOLUME 102 FL (80-99); MONOCYTES % (AUTO) 13.4 % (1.0-10.0); NEUTROPHILS % (AUTO) 37.4 % (45.0-75.0); PLATELET COUNT 126 K/UL (150-450); RED BLOOD COUNT 4.09 M/UL (4.70-6.10); RED CELL DISTRIBUTION WIDTH 12.7 % (11.6-14.8)
[2019-05-21 07:01] LABS: ALANINE AMINOTRANSFERASE 54 U/L (12-78); ALBUMIN 3.2 G/DL (3.4-5.0); ALBUMIN/GLOBULIN RATIO 0.9 (1.0-2.7); ALKALINE PHOSPHATASE 63 U/L (46-116); ANION GAP 6 mmol/L (5-15); ASPARTATE AMINO TRANSFERASE 30 U/L (15-37); BILIRUBIN,TOTAL 0.6 MG/DL (0.2-1.0); BLOOD UREA NITROGEN 5 mg/dL (7-18); CALCIUM 8.3 MG/DL (8.5-10.1); CARBON DIOXIDE 29 MMOL/L (21-32); CHLORIDE 107 MMOL/L (98-107); CREATININE 0.9 MG/DL (0.55-1.30); POTASSIUM 3.6 MMOL/L (3.5-5.1); SODIUM 142 MMOL/L (136-145)
--- NOTE | 2019-05-21 07:15 | NUR ---
HAND-OFF: Report given to KURT Small.
--- NOTE | 2019-05-21 07:47 | NUR ---
NURSE NOTES: Received report from Molina RN, pt a/a/o x4 laying in bed sleeping with no signs of distress pt stated feeling better. pt has NGT on the right nostril to gravity suction. overnight out put: 50ml. (total 24hr= 60ml) IV on the right FA gauge#24 running D5NS@100ml/hr. pt able to ambulate to the bathroom with staff assistance. call light within reach,. bed in lowest position. side rales up x2. I will f/u as needed.
[2019-05-21] MEDS: Heparin 5000 units/ml inj SUBQ SCH ×2 (08:19→20:04)
[2019-05-21] MEDS: Pantoprazole Inj IV SCH (08:19)
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
--- NOTE | 2019-05-21 11:22 | NUR ---
CASE MANAGEMENT:REVIEW 63 YR OLD MALE PRESENTED TO ER CC: ABDOMINAL PAIN X3 DAYS WITH NAUSEA AND VOMITING SI: SMALL BOWEL OBSTRUCTION 98.0 88 22 166/76 96% ON RA GLUCOSE+118 IS: IV ZOFRAN X2 IV PEPCID IV MORPHINE 1L NS BOLUS IV DILAUDID : TO MED/SURG 4 EAST IS: NG TUBE PLACED *INTERQUAL CRITERIA MET
[2019-05-21] MEDS ORDERED: D5NS 1000ml IV ONE (15:27)
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
[2019-05-21] MEDS ORDERED: Lisinopril 20mg tab ORAL ONE (17:30)
--- NOTE | 2019-05-21 19:30 | NUR ---
NURSE NOTES: Received report & pt from KURT Small. Pt lying in bed, a&ox4, in room air. No s/s of acute distress & no c/o pain at this time. IV site intact with IVF running as ordered. Bed in lowest position, call light within reach. Will continue to monitor.
[2019-05-21] MEDS: [UNRECOGNIZED DRUG - OTHER] ORAL SCH (20:06)
[2019-05-21] MEDS: ISENTRESS 400 MG ORAL SCH (20:06)
[2019-05-21] MEDS: DESCOVY ORAL SCH (20:06)
--- NOTE | 2019-05-21 20:09 | NUR ---
HAND-OFF: Report given to yasmeen Sweet instable condition. - during my shift removal of NGT. pt was able to tolerated well with no n/v. - pt was able to start clear liquids with no s/s of n/v.
[2019-05-22] VITALS (7 sets, daily range): BP systolic 110–173; BP diastolic 61–97
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
--- NOTE | 2019-05-22 07:30 | NUR ---
HAND-OFF: Report given to KURT Saldaña. Rounds done.
--- NOTE | 2019-05-22 07:45 | NUR ---
NURSE NOTES: Pt laying in bed awake, clear liquid diet at bedside. Call light in reach. Current plan will will be followed
[2019-05-22] MEDS: Pantoprazole Inj IV SCH (08:46)
[2019-05-22] MEDS: Lisinopril 20mg tab ORAL SCH (08:47)
[2019-05-22] MEDS: ISENTRESS 400 MG ORAL SCH ×2 (08:47→20:02)
[2019-05-22] MEDS: [UNRECOGNIZED DRUG - OTHER] ORAL SCH ×2 (08:48→20:02)
[2019-05-22] MEDS: Heparin 5000 units/ml inj SUBQ SCH (09:00)
[2019-05-22] MEDS ORDERED: hydroCHLOROthiazide 12.5mg TAB ORAL SCH (09:00)
[2019-05-22] MEDS: D5NS 1,000 ML IV SCH ×2 (09:06→18:06)
[2019-05-22] MEDS ORDERED: D5NS 1000ml IV ONE (09:45)
--- NOTE | 2019-05-22 10:12 | NUR ---
NURSE NOTES: Dr Charles phoned to be made aware, that platelet count 126 and has orders for Heparin 5000 q12 pt is ambulatory, gave orders to dc heparin earlier in shift.
[2019-05-22] MEDS: LORazepam Inj 2mg/ml 1ml IV PRN (10:35)
--- NOTE | 2019-05-22 13:36 | NUR ---
NURSE NOTES: Dr Whittaker here seen pt upgraded diet Pt requested Ativan for his anxiety. Brim Presser brought Ativan , and expalined what Ativan is for. Pt began to yell " I do not know what it Ativan is, informed that Ativan was a anxiolytic. He placed covers over his head. " You remind me of my daughter in law she is a Black like you, I am sorry , but I am taking it out on you, because I am mad at her. Pt consoled. Call light in reach
--- NOTE | 2019-05-22 14:29 | Surgery Progress Note ---
Surgery Progress Note Subjective Symptoms: improved, pain absent, tolerating diet, voiding well, passing flatus , BM Objective Last 24 Hour Vital Signs Date Time Temp Pulse Resp B/P (MAP) Pulse Ox O2 Delivery O2 Flow Rate FiO2 05/22/19 10:35 160/85 05/22/19 09:00 Room Air 05/22/19 08:47 160/85 05/22/19 08:00 98.1 57 18 160/85 (110) 99 05/22/19 05:38 63 158/80 (106) 05/22/19 05:00 173/97 05/22/19 04:55 98.3 85 20 173/97 (122) 99 05/22/19 00:00 98.5 57 16 144/69 (94) 99 05/21/19 21:00 Room Air 05/21/19 20:06 160/82 05/21/19 19:52 98.0 63 16 160/82 (108) 99 05/21/19 16:00 97.1 60 19 141/70 (93) 95 I&O Intake and Output 05/21/19 05/22/19 19:00 07:00 Intake Total 2000 ml 1820 ml Output Total 1500 ml Balance 500 ml 1820 ml Intake Oral 800 ml 720 ml IV Total 1200 ml 1100 ml Output Urine Total 1500 ml # Voids 4 4 Cardiovascular: RSR Respiratory: clear Abdomen: soft, flat, non-tender, present bowel sounds Extremities: no edema, no tenderness, no cyanosis Plan Problems: (1) SBO (small bowel obstruction) Assessment & Plan: 63-year-old male with prior history of ex lap followed by SBO exploration came in with abdominal pain CT with possible SBO Exam abdomen soft nontender but distended No acute surgical intervention IV fluids IV antibiotics NG tube decompression will not muñoz him monitor for now regular diet Severe abdominal exams We will follow with recommendations If not significantly improved in the next 24 to 48 hours may require exploration discussed with patient in detail at bedside in emergency department Findings: Lack of enteric contrast limits assessment of the GI tract. The terminal ileum is slightly prominent, demonstrates mild wall thickening. The distal ileum proximal to the terminal ileum is unremarkable in appearance. However, beginning at the level of the mid jejunum, the small bowel is dilated and fluid-filled. The wall is somewhat prominent and enhancing. The transition point appears to be in the left lower quadrant, axial series 2 images 57 through 75, distal to which small bowel is nondilated, still fluid-filled with some mural enhancement. The distal dilated small bowel contains some small bowel feces The appendix is normal. There is no evidence of colonic diverticulosis or diverticulitis. No free or loculated intraperitoneal gas or fluid is evident. The distal esophagus is unremarkable. The stomach is mildly distended with fluid. The duodenum is unremarkable. The liver, gallbladder, bile ducts, pancreas, spleen, adrenals, kidneys are unremarkable. No pelvic mass or adenopathy. No retroperitoneal or mesenteric mass or adenopathy. Some calcifications are seen in the left anterior pelvis, may represent old granulomatous lymph nodes The included lung bases demonstrate some posterior dependent atelectatic changes. The bones are unremarkable except for mild degenerative spondylosis changes. There are coronary artery calcifications Impression: Dilated mid and distal jejunum, with normal caliber ileum distally. Findings are suspicious for small bowel obstruction, point of obstruction at the level of the mid small bowel. However, given findings suggestive of inflammation of the terminal ileum, enteritis/ileitis is also a potential etiology of this finding Nonspecific calcifications within the left pelvis Other incidental findings as noted, including posterior dependent atelectatic changes. Mild degenerative spondylosis changes Ezekiel Manriquez May 22, 2019 14:28
[2019-05-22] MEDS ORDERED: D5 1/2NS 1000ml IV ONE (15:00)
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
--- NOTE | 2019-05-22 19:42 | NUR ---
NURSE NOTES: Pt diet upgraded earlier in shift to regular, Pt mood uplifted after Ativan was given. Verbalized he felt better , and apologized for statements made earlier in shift. States he has a BM after eating no complaints of nausea or vomiting Encouraged to purchase a bp cuff at [employer] to monitor his blood pressure, educated on signs of hypertension as well as "silent killer epidemic" Pt stated he has been on htn medications for a long time and no one has told him about monitoring. Call light is in reach. Care endorsed to Desiree
--- NOTE | 2019-05-22 19:46 | NUR ---
HAND-OFF: Report given to Desiree HICKS.
[2019-05-22] MEDS: DESCOVY ORAL SCH (20:02)
--- NOTE | 2019-05-22 22:03 | NUR ---
NURSE NOTE: Pt is A/Ox4 with stable VS. Orders reviewed and physical assessment completed. Pt denies any pain. Call hernandez is within reach. Will continue to monitor.
[2019-05-23 00:22] VITALS: BP 148/74
[2019-05-23 04:00] VITALS: BP 148/79
[2019-05-23] MEDS: D5NS 1,000 ML IV SCH ×2 (04:28→14:12)
--- NOTE | 2019-05-23 07:33 | NUR ---
NURSE NOTES: Received pt from MARGARITO HICKS, Pt is alert and orient x4. pt is in RA, no SOB or acute respiratory distress noted. pt has intact iv access LFA 22G is running well. No complain of pain at this moment. all needs attended, bed is locked and is in the lowest position, call light within easy reach. will continue to monitor.
[2019-05-23 08:00] VITALS: BP 138/75
--- NOTE | 2019-05-23 08:52 | NUR ---
NURSE NOTES: Spoke to regarding patient and cleared to discharge patient GI standpoint. Order read back and carried out.
--- NOTE | 2019-05-23 08:56 | NUR ---
NURSE NOTES: given pt to BRANDON POP.
[2019-05-23] MEDS: [UNRECOGNIZED DRUG - OTHER] ORAL SCH (09:02)
[2019-05-23] MEDS: ISENTRESS 400 MG ORAL SCH (09:02)
[2019-05-23] MEDS: Pantoprazole Inj IV SCH (09:03)
[2019-05-23] MEDS: Lisinopril 20mg tab ORAL SCH (09:03)
[2019-05-23] MEDS ORDERED: D5NS 1000ml IV ONE (09:16)
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
--- NOTE | 2019-05-23 11:19 | NUR ---
NURSE NOTES: Spoke to regarding patient and cleared to discharge surgical standpoint. Order noted and carried out.
[2019-05-23 12:00] VITALS: BP 171/95
--- NOTE | 2019-05-23 13:01 | NUR ---
NURSE NOTES: Spoke to regarding discharge. Per : 1. discharge patient with [facility], 2. Continue home medications. Order noted and carried out.
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
[2019-05-23 14:40] VITALS: BP 147/79
--- NOTE | 2019-05-23 15:21 | NUR ---
NURSE NOTES: Spoke to CM regarding home health arrangement and CM will make home health arrangement.
[2019-05-23 16:00] VITALS: BP 132/84
--- NOTE | 2019-05-23 18:30 | NUR ---
NURSE NOTES: Patient discharged with family member in stable condition. Discharge instruction given to patient and verbalized understanding. Instructed to follow up with MD and verbalized understanding. Home health information given. IV and ID removed. Patient ambulated out with all personal belongings with steady gait.
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
--- NOTE | 2019-05-24 10:54 | NUR ---
DISCHARGE PLAN FAXED CLINICALS TO [facility] 1999 T: [phone] F: [phone]
== END 2019-05-23 18:30 | disposition home health service (06) | DRG 389 ==
LOC: EMR 16:15 → EDBEDREQ 18:33 → 3E 18:48
DX: K56.609 Unspecified intestinal obstruction, unspecified as to partial versus complete obstruction (principal); E44.1 Mild protein-calorie malnutrition; R11.2 Nausea with vomiting, unspecified; K66.0 Peritoneal adhesions (postprocedural) (postinfection); K59.00 Constipation, unspecified; D69.6 Thrombocytopenia, unspecified; Z88.2 Allergy status to sulfonamides; F15.11 Other stimulant abuse, in remission
CPT/HCPCS: 36415; 74018; 74177; 80053; 80061; 81003; 83036; 83690; 83880; 84484; 85025; 85610; 85730; 93005; 96361; 96374; 96375; 96376; 99285; J2405